=== PATIENT | male | born 2000 | race Caucasian/White ===

== ENCOUNTER 2018-04-02 20:08 | Emergency (ER) | payer OTHER ==
[~2018-04-02] VITALS: Ht 188 cm; Wt 147.4 kg
[2018-04-02] MEDS ORDERED: NAPROSYN500 MG PO (20:21)
[2018-04-02 20:48] LABS: ABSOLUTE BASOPHILS 0.1 thou/uL (0.0-0.2); ABSOLUTE MONOCYTES 0.7 thou/uL (0.0-1.2); ABSOLUTE NEUTROPHILS 6.6 thou/uL (1.6-8.1); WBC 9.1 thou/uL (4.0-11.0)
[2018-04-02 20:50] LABS: ABSOLUTE EOSINOPHILS 0.3 thou/uL (0.0-0.7); ABSOLUTE LYMPHOCYTES 1.5 thou/uL (0.8-5.3); BASOPHILS 0.9 %; EOSINOPHILS 3.1 %; HEMATOCRIT 42.6 % (42.0-52.0); HEMOGLOBIN 13.9 gm/dL (14.0-18.0); LYMPHOCYTES 15.9 %; MCH 24.7 pg (26.0-34.0); MCHC 32.6 g/dL (28.0-37.0); MCV 75.7 fL (80.0-100.0); MONOCYTES 7.7 %; NUCLEATED RBCS 0 /100WBC; PLATELET COUNT* 189 thou/uL (150-400); POLYS 72.4 %; RBC 5.63 mil/uL (4.50-6.00); RDW-CV 15.5 % (10.5-14.5)
[2018-04-02 20:57] LABS: CALCIUM 9.7 mg/dL (8.5-10.1); CREATININE 0.7 mg/dL (0.6-1.3)
[2018-04-02 21:07] LABS: ALBUMIN 3.7 g/dL (3.4-5.0); TOTAL BILIRUBIN 0.4 mg/dL (<0.1-1.0); TOTAL PROTEIN 8.1 g/dL (6.4-8.2)
[2018-04-02] MEDS ORDERED: AUGMENTIN 875-1 EACH PO (21:56)
[2018-04-02] MEDS ORDERED: PREDNISONE 10 M10 MG PO (21:56)
[2018-04-02 22:14] VITALS: BP 148/60
== END 2018-04-02 22:14 | disposition home or self-care (01) ==
LOC: M.ERS 20:08
PROVIDERS: Nurse Practitioner Family
DX: J03.90 Acute tonsillitis, unspecified (principal); J35.2 Hypertrophy of adenoids; Z91.09 Other allergy status, other than to drugs and biological substances